=== PATIENT | female | born 1990 | race Caucasian/White ===

== ENCOUNTER 2023-08-30 20:08 | Outpatient (REF) | payer OTHER, SELFPAY ==
[2023-09-05 21:07] LABS: Age Gdln ACOG Testing Note (.); HPV Aptima Negative (Negative); IGP, Aptima HPV, rfx 16/18,45 Note (.)
== END 2023-08-30 20:09 | disposition home or self-care (01) ==
LOC: LAB 20:08
PROVIDERS: Visit Provider Obstetrics & Gynecology
DX: Z12.4 Encounter for screening for malignant neoplasm of cervix (principal)
CPT/HCPCS: 87624; G0145

== ENCOUNTER 2023-09-05 08:24 | Outpatient (OUT) | payer OTHER, SELFPAY ==
--- NOTE | 2023-09-05 08:25 | US_ITS ---
The [address] [address] Patient Name: GEORGE GOODMAN MRN: [id number] date: 1990 Sex: F Assigned Patient Location: Current Patient Location: US Accession/Order Number: [id number] Exam Date: 09/05/2023 08:29 Report Date: 09/05/2023 12:12 At the request of: ROMMEL MORE Procedure: US pelvis w/ transvaginal PROCEDURE: US pelvis w/ transvaginal DATE: 09/05/2023 7:29 AM CDT COMPARISONS: None. INDICATION FOR EXAMINATION: 32 years Female PELVIC PAIN IN FEMALE R10.2 TECHNIQUE: Grayscale and color Doppler technique were utilized to evaluate the pelvis. Transabdominal and Transvaginal imaging was performed. FINDINGS: UTERUS: The uterus measures 10.3 x 5.4 x 4.5 cm. There is no evidence of focal uterine masses or other significant abnormalities. The cervix shows no evidence of abnormalities. There are a few incidentally identified nabothian cysts of the cervix. The endometrium measures 12 mm in thickness. The endometrium is uniform in thickness and echogenicity. There is a small amount of fluid in the endometrial canal. There is an IUD in place. Based on these images, it appears to be lying slightly more caudal than usual. The cephalad aspect appears to be in the body of the uterus whereas a more normal appearance would be for it should be into the fundus of the uterus. It is noted that the IUD is difficult to perfectly evaluated on this exam. ADNEXA: The right ovary measures 3.8 x 3.3 x 2.1 cm. There is a anechoic area with a few internal echoes measuring 2.4 x 2.2 x 1.6 cm of the right ovary. It appears to represent a septated cyst is likely of no clinical significance. Follow-up imaging as clinically felt necessary. The left ovary measures 2.7 x 2.3 x 1.4 cm. There is no evidence of ovarian or adnexal solid or significant masses. There is no other evidence of significant adnexal abnormalities. Normal vascular flow is identified to both ovaries. FLUID: There is no evidence of an abnormal amount of free fluid within the pelvis. ASSESSMENT: 1. The endometrium shows no significant abnormalities. It is noted that the IUD appears to be slightly more caudal in the uterus than expected based on these ultrasound images, as discussed above. 2. Findings consistent with a septated cyst of the right ovary, probably of no clinical significance 3. No other abnormalities identified. Electronically authenticated by: VENTURA MUSTAFA Date: 09/05/2023 12:12
== END 2023-09-05 08:25 | disposition home or self-care (01) ==
LOC: US 08:24
PROVIDERS: Visit Provider Obstetrics & Gynecology
DX: R10.2 Pelvic and perineal pain (principal)
CPT/HCPCS: 76830; 76856